=== PATIENT | male | born 1995 | race Caucasian/White ===

== ENCOUNTER 2021-09-17 10:08 | Emergency (ER) | payer OTHER ==
--- NOTE | 2021-09-17 12:08 | ED Physician Documentation ---
PD HPI UPPER EXT INJURY - Stated complaint Stated Complaint: NECK/L SHOULDER PX - Chief complaint Chief Complaint: Trauma Ext - History obtained from History obtained from: Patient - Additonal information Additional information: Doing some stretching today and felt a pop or pull in the left neck, now has pain more with rotation of the neck then movement of the left shoulder. Rotation of the neck to the left is particularly bad. He denies weakness, numbness, tingling in the arms or legs. This is never happened before. Review of Systems Constitutional: reports: Reviewed and negative Eyes: reports: Reviewed and negative Ears: reports: Reviewed and negative Nose: reports: Reviewed and negative Throat: reports: Reviewed and negative PD PAST MEDICAL HISTORY - Past Medical History Past Medical History: Yes Cardiovascular: None Respiratory: None Neuro: None Endocrine/Autoimmune: None GI: None : None HEENT: None Psych: None Musculoskeletal: Other Derm: None - Past Surgical History Past Surgical History: No Ortho: Other - Present Medications Home Medications: Ambulatory Orders Medication Instructions Recorded Confirmed No Known Home Medications 09/18/15 09/17/21 - Allergies Allergies/Adverse Reactions: Allergies Allergy/AdvReac Type Severity Reaction Status Date / Time No Known Drug Allergies Allergy Verified 09/17/21 10:12 - Social History Does the pt smoke?: No Smoking Status: Never smoker Does the pt drink ETOH?: Yes Does the pt have substance abuse?: No - Immunizations Immunizations are current?: Yes PD ED PE NORMAL - Vitals Vital signs reviewed: Yes - General General: Alert and oriented X 3, No acute distress - Neck Neck: Supple, no meningeal sign, No bony TTP, Other (No midline neck tenderness, mild tenderness of the left sternocleidomastoid. He has equal mule spinner strength, thumb extension, flexion and extension at the wrists, interosseous strength on both sides. No sensory deficit in the upper extremity.) - Neuro Neuro: Alert and oriented X 3, Normal speech - Psych Psych: Normal mood, Normal affect Results - Vitals Vitals: Vital Signs - 24 hr 09/17/21 10:12 Temperature 36 C L Heart Rate 94 Respiratory 16 Rate Blood Pressure 138/77 H O2 Saturation 99 Oxygen O2 Source Room air PD MEDICAL DECISION MAKING - ED course ED course: 25-year-old gentleman with sprain/spasm of the left sternocleidomastoid. No neurologic symptoms or evidence of more worrisome illness. He declined pain medication. Departure - Departure Disposition: 01 Home, Self Care Clinical Impression: Strain of sternocleidomastoid muscle Qualifiers: Encounter type: initial encounter Qualified Code(s): S16.1XXA - Strain of muscle, fascia and tendon at neck level, initial encounter Condition: Good Record reviewed to determine appropriate education?: Yes Instructions: ED Sprain Strain Neck Comments: Heat and gentle stretching, ibuprofen as needed for pain. Follow-up with your flight surgeon if not better in the next few days. Return for new or worsening symptoms.
[2021-09-17 12:11] VITALS: BP 139/89
== END 2021-09-17 12:11 | disposition home or self-care (01) ==
LOC: ED 10:08
DX: S16.1XXA Strain of muscle, fascia and tendon at neck level, initial encounter (principal); X58.XXXA Exposure to other specified factors, initial encounter
CPT/HCPCS: 99281; 99282